=== PATIENT | female | born 1990 | race Caucasian/White ===

== ENCOUNTER → 2019-12-06 09:32 | Outpatient (BNVA) | payer OTHER, SELFPAY | PROVIDERS: Family Provider Family Medicine; PCP Family Medicine; Visit Provider Nurse Practitioner | DX: J02.0 Streptococcal pharyngitis (principal) | CPT/HCPCS: 87880 ==

== ENCOUNTER 2021-02-04 17:19 | Emergency (ER) | payer BC, SELFPAY ==
[2021-02-04 17:21] VITALS: BP 162/109; PULSE 83; RESP 15; O2SAT 98; BMI 37.8
--- NOTE | 2021-02-04 17:38 | CTR_ITS ---
PROCEDURE INFORMATION: Exam: CT Abdomen And Pelvis With Contrast Exam date and time: 02/04/2021 5:47 PM Age: 30 years old Clinical indication: Abdominal pain; Generalized; Patient HX: C/O abd pain w n/v/d x 1 week; Additional info: Pain, diarrhea x 1 week, worsening TECHNIQUE: Imaging protocol: Computed tomography of the abdomen and pelvis with contrast. Radiation optimization: All CT scans at this facility use at least one of these dose optimization techniques: automated exposure control; mA and/or kV adjustment per patient size (includes targeted exams where dose is matched to clinical indication); or iterative reconstruction. Contrast material: OMNI 300; Contrast volume: 95 ml; Contrast route: INTRAVENOUS (IV); COMPARISON: No relevant prior studies available. RADIATION DOSE METRICS: Total DLP (mGy-cm): 1667.55 FINDINGS: The lung bases are clear. The visualized bony structures are unremarkable. There is no liver mass. There is no intrahepatic biliary dilatation. No gallstones are seen within the gallbladder. The pancreas is unremarkable. The spleen is unremarkable. There is no adrenal mass. There is no hydronephrosis. There are no renal calculi. There is no perinephric stranding. There is no renal mass. The aorta is normal in caliber. The IVC is normal in caliber. Small retroperitoneal and mesenteric lymph nodes are present. Stomach is decompressed. The small bowel loops in the upper abdomen are nondistended with no bowel wall thickening. There is thickening of the wall involving the ascending and proximal transverse colon. There is also colonic wall thickening of the sigmoid colon. The findings are consistent with a colitis possibly infectious or inflammatory. Crohn's disease would be a consideration. GI consult is recommended. Within the pelvis: A normal appendix is seen within the right lower quadrant. The bladder is unremarkable. The uterus is unremarkable. There are no adnexal masses. There is no free fluid within the pelvis. There is no inguinal adenopathy. There is no pelvic adenopathy. CT/CT abdomen pelvis w con* [id number] IMPRESSION: 1. Colonic wall thickening involving the ascending and proximal transverse colon as well as the sigmoid colon with some pericolonic fat stranding. Findings are consistent with a colitis possibly infectious or inflammatory. Crohn's disease would be a consideration. GI consult is recommended. 2. No evidence for bowel obstruction. Radiation Dose CTDIVOL = (mGy): DLP = 1667.55 (mGy-cm)
--- NOTE | 2021-02-04 17:40 | W.ED.ABDPA2 ---
HPI - Abdominal Pain General: Chief Complaint: Abdominal Pain Stated Complaint: MID/LOWER ABD PAIN Time Seen by Provider: 02/04/21 17:29 History of Present Illness: HPI narrative: Patient presents with diarrhea for greater than week. Had an episode of vomiting also.'s had fever intermittently during this time. Patient has been seen in urgent care and placed on Zofran which has not helped any. Her stools have gone down for about 20-day to 10 a day. Said not able to eat much. Currently on her menses. MD elicited complaint: abdominal pain Onset (ago): day(s) Pain Consistency: constant Location: Diffuse Severity: moderate Quality: cramping and aching Radiation: none Exacerbating factors: eating Associated Symptoms: Reports GI cramping, diarrhea and nausea; Denies chills and fever(s) Review of Systems Const: Denies: fever(s), chills or body aches Eyes: Denies: change in vision or blurry vision ENMT: Denies: throat pain or nasal congestion Card: Denies: chest pain or dyspnea on exertion Resp: Denies: dyspnea, productive cough or non-productive cough GI: Reports: nausea, diarrhea and GI cramping Musc: Denies: extremity pain Skin/Breast: Denies: rash Neuro: Denies: headache(s) Psych: Denies: anxiety or depression Los/Lymph: Denies: easy bruising PFSH ED PFSH: Medical History (Updated 06/21/20 @ 09:33 by Renetta Ny APN, WHNP) Encounter for surveillance of contraceptives, unspecified No pertinent past medical history neghx: dm,htn,thyroid,dvt/PE Surgical History No history of previous surgery Family History Grandfather Diabetes paternal Stroke Hyperlipidemia Father Hyperlipidemia Grandmother PCOS (polycystic ovarian syndrome) paternal Hyperlipidemia paternal great grandmother Family/Other Breast cancer PGGM Family/Other PCOS (polycystic ovarian syndrome) paternal aunt Social History Additional social history: - Tobacco use: never Alcohol use: never Drug use: never Physical Exam Const: COMMON NORMALS: no acute distress, average body habitus and patient oriented x3 HENMT: COMMON NORMALS: normocephalic HEAD & SCALP: normal to inspection and normocephalic FACE & SINUS: normal facial exam Eye: COMMON NORMALS: conjunctivae normal GENERAL EYE: appearance normal, both eyes and all related structures CONJUNCTIVA: Yes conjunctivae normal Neck/C-Spine: COMMON NORMALS: no JVD Chest: COMMONS NORMALS: normal inspection of the chest Resp: COMMON NORMALS: normal respiratory effort and clear to auscultation bilaterally AUSCULTATION: clear to auscultation bilaterally Cardio: COMMON NORMALS: no JVD, regular rate and regular rhythm RATE: regular rate RHYTHM: regular rhythm GI: INSPECTION: Yes normal to inspection PALPATION: Yes Tenderness to palpation present (GI) (Generalized) PERCUSSION: normal to percussion Extremity: COMMON NORMALS: normal to inspection and full ROM Neuro: COMMON NORMALS: patient oriented x3 Course Vital Signs: Vital signs: Vital Signs Pulse Rate 68 02/04/21 19:36 Respiratory Rate 15 02/04/21 17:21 Blood Pressure 162/109 02/04/21 17:21 Pulse Oximetry 100 02/04/21 19:36 MDM - Abdominal Pain MDM Narrative: Medical decision making narrative: Labs and radiology results reviewed with patient.. She has a colitis patient is follow-up primary care provider in a week or 2 if no significant provement we will treat for possible bacterial more likely is a viral colitis caused by gastroenteritis is been going to her community presently. Patient can take Imodium to help with decrease amount of stools. Continue to push fluids that she has been doing. Lab Data: Labs: Lab Results 02/04/21 02/04/21 02/04/21 Range/Units 17:37 17:48 17:48 WBC 8.3 (4.0-10.0) 10^3/ uL RBC 4.90 (4.1-5.3) 10^6/u L Hgb 12.5 (11.5-15.3) g/dL Hct 38.9 (37.0-47.0) % MCV 79.4 L (81-99) fL MCH 25.5 L (28.0-34.0) pg MCHC 32.1 (30.0-36.0) g/dL RDW 12.4 (12.1-15.1) % Plt Count 320 (130-400) 10^3/c mm MPV 9.5 (7.4-10.4) fL Neut % (Auto) 49.8 % Lymph % (Auto) 35.7 % Floyd % (Auto) 9.8 % Eos % (Auto) 3.1 % Baso % (Auto) 0.5 % Neut # (Auto) 4.15 (1.8-7.7) 10^3/u L Lymph # (Auto) 3.0 (0.8-4.8) 10^3/u L Floyd # (Auto) 0.8 (0.2-0.9) 10^3/u L Eos # (Auto) 0.3 (0.0-0.8) 10^3/u L Baso # (Auto) 0.0 (0.0-0.1) 10^3/u L Nucleated RBC % (a uto) 0 % Nucleated RBCs # 0.0 /100WBC Sodium 140 (136-145) mmol/L Potassium 4.3 (3.5-5.1) mmol/L Chloride 104 (98-107) mmol/L Carbon Dioxide 28 (22-29) mmol/L Anion Gap 12.3 (5-19) BUN 8 (6-20) mg/dL Creatinine 0.6 (0.5-0.9) mg/dL GFR Calculation 117.4 (90-130) mL/min Glucose 119 H (65-115) mg/dL Calculated Osmolal ity 289 (285-295) mOsm/k g Calcium 8.5 (8.5-10.5) mg/dL Total Bilirubin 0.2 (0.15-1.2) mg/dL AST 25 (0-32) U/L ALT 29 (0-33) U/L Alkaline Phosphata se 85 (35-105) IU/L Total Protein 7.1 (6.6-8.7) g/dL Albumin 3.7 (3.5-5.2) g/dL Globulin 3.4 (1.3-4.6) g/dL Lipase 29 (13-60) U/L HCG, Qual (Negative) Urine Color Dark yellow (Yellow) Urine Appearance Hazy A (CLEAR) Urine pH 5 (5-7) Ur Specific Gravit y 1.025 (1.005-1.030) Urine Protein Trace (Negative) Urine Glucose (UA) Norm (Normal) Urine Ketones Negative (Negative) Urine Blood 3+ H (Negative) Urine Nitrate Negative (Negative) Urine Bilirubin 1+ H (Negative) Urine Urobilinogen Norm (Negative) mg/dL Ur Leukocyte Shama ase Trace H (Negative) Urine RBC Too numerous to c nt H (0-2) /hpf Urine WBC 0-4 H (0-5) /hpf Ur Squamous Epith Cells 0-4 H (0-5) /hpf Amorphous Sediment Not Reportable Urine Bacteria 1+ H (NONE) /hpf 02/04/21 Range/Units 17:48 WBC (4.0-10.0) 10^3/ uL RBC (4.1-5.3) 10^6/u L Hgb (11.5-15.3) g/dL Hct (37.0-47.0) % MCV (81-99) fL MCH (28.0-34.0) pg MCHC (30.0-36.0) g/dL RDW (12.1-15.1) % Plt Count (130-400) 10^3/c mm MPV (7.4-10.4) fL Neut % (Auto) % Lymph % (Auto) % Floyd % (Auto) % Eos % (Auto) % Baso % (Auto) % Neut # (Auto) (1.8-7.7) 10^3/u L Lymph # (Auto) (0.8-4.8) 10^3/u L Floyd # (Auto) (0.2-0.9) 10^3/u L Eos # (Auto) (0.0-0.8) 10^3/u L Baso # (Auto) (0.0-0.1) 10^3/u L Nucleated RBC % (a uto) % Nucleated RBCs # /100WBC Sodium (136-145) mmol/L Potassium (3.5-5.1) mmol/L Chloride (98-107) mmol/L Carbon Dioxide (22-29) mmol/L Anion Gap (5-19) BUN (6-20) mg/dL Creatinine (0.5-0.9) mg/dL GFR Calculation (90-130) mL/min Glucose (65-115) mg/dL Calculated Osmolal ity (285-295) mOsm/k g Calcium (8.5-10.5) mg/dL Total Bilirubin (0.15-1.2) mg/dL AST (0-32) U/L ALT (0-33) U/L Alkaline Phosphata se (35-105) IU/L Total Protein (6.6-8.7) g/dL Albumin (3.5-5.2) g/dL Globulin (1.3-4.6) g/dL Lipase (13-60) U/L HCG, Qual Negative (Negative) Urine Color (Yellow) Urine Appearance (CLEAR) Urine pH (5-7) Ur Specific Gravit y (1.005-1.030) Urine Protein (Negative) Urine Glucose (UA) (Normal) Urine Ketones (Negative) Urine Blood (Negative) Urine Nitrate (Negative) Urine Bilirubin (Negative) Urine Urobilinogen (Negative) mg/dL Ur Leukocyte Shama ase (Negative) Urine RBC (0-2) /hpf Urine WBC (0-5) /hpf Ur Squamous Epith Cells (0-5) /hpf Amorphous Sediment Urine Bacteria (NONE) /hpf Discharge Plan Discharge Patient Disposition: Home Condition: Stable Prescriptions: New Cipro 500 mg tablet 500 mg PO BID Qty: 14 RF: 0 Flagyl 500 mg tablet 500 mg PO BID 7 Days Qty: 14 RF: 0 No Action Xulane 150-35 mcg/24 hr patch weekly 1 patch transdermal Q7D Qty: 3 RF: 1 ondansetron 4 mg tablet,disintegrating 4 mg PO Q8H PRN (Reason: nausea and vomiting) Qty: 20 RF: 0 Discharge Orders: Discharge ED (Routine); Ordered 02/04/21 Ordered By: Bassem Maria Discharge Diet: As Directed Discharge Activity: Increase activity as tolerated Patient Instructions: Infectious Colitis (ED) Activity Restrictions/Additional Instructions: Follow-up with medical provider as directed. Take medications as prescribed. Return to the ER or your medical provider if condition worsens. Please read and understand discharge instructions. If any questions ask please. Advance diet slowly. Can take Imodium for diarrhea. Coding Level of Care Code ED Social Sciences Department Chair for Michaelag Fwd Exam Comprehensive
[2021-02-04 17:57] LABS: Basophils % 0.5 %; Eosinophils # 0.3 10^3/uL (0.0-0.8); Eosinophils % 3.1 %; Hematocrit 38.9 % (37.0-47.0); Hemoglobin 12.5 g/dL (11.5-15.3); Lymphocytes % 35.7 %; Mean Corpuscular HGB Conc 32.1 g/dL (30.0-36.0); Mean Corpuscular Hemoglobin 25.5 pg (28.0-34.0); Mean Corpuscular Volume 79.4 fL (81-99); Mean Platelet Volume 9.5 fL (7.4-10.4); Monocytes # 0.8 10^3/uL (0.2-0.9); Monocytes % 9.8 %; Neutrophils # 4.15 10^3/uL (1.8-7.7); Neutrophils % 49.8 %; Nucleated Red Blood Cells % 0 %; Platelet Count 320 10^3/cmm (130-400); Red Cell Distribution Width 12.4 % (12.1-15.1); White Blood Count 8.3 10^3/uL (4.0-10.0)
[2021-02-04] MEDS: sodium chloride 0.9% 1,000 ML 999 ML IV (17:59)
[2021-02-04 18:00] LABS: Specific Gravity, Urine 1.025 (1.005-1.030); Urine Appearance Hazy (CLEAR); Urine Color Dark Yellow (Yellow); pH Urine 5 (5-7)
[2021-02-04 18:01] LABS: Add Urine Culture? Yes; Add Urine Microscopic? YES; Bacteria Urine 1+ /hpf; Bilirubin Urine 1+ (Negative); Blood Urine 3+ (Negative); Glucose Urine UA Norm (Normal); Ketones Urine Negative (Negative); Leukocyte Esterase Urine Trace (Negative); Nitrate Urine Negative (Negative); Protein Urine Trace (Negative); RBC Urine TOO NUMEROUS TO CNT /hpf (0-2); Squamous Epithelial Cell Urine 0-4 /hpf (0-5); Urobilinogen Urine Norm (Negative); WBC Urine 0-4 /hpf (0-5)
[2021-02-04 18:09] LABS: HCG, Serum Qual Negative (Negative)
[2021-02-04 18:13] LABS: Alanine Aminotransferase 29 U/L (0-33); Albumin Level 3.7 g/dL (3.5-5.2); Alkaline Phosphatase 85 IU/L (35-105); Anion Gap 12.3 (5-19); Aspartate Amino Transferase 25 U/L (0-32); Blood Urea Nitrogen 8 mg/dL (6-20); Calcium 8.5 mg/dL (8.5-10.5); Carbon Dioxide 28 mmol/L (22-29); Chloride 104 mmol/L (98-107); Globulin 3.4 g/dL (1.3-4.6); Glomerular Filtration Rate 117.4 mL/min (90-130); Glucose 119 mg/dL (65-115); Lipase 29 U/L (13-60); Osmolality Calculated 289 mOsm/kg (285-295); Potassium 4.3 mmol/L (3.5-5.1); Sodium 140 mmol/L (136-145); Total Bilirubin 0.2 mg/dL (0.15-1.2); Total Protein 7.1 g/dL (6.6-8.7)
[2021-02-04] MEDS: iohexol 300 mg/mL 100 mL Btl IV (18:26)
[2021-02-04] MEDS: metroNIDAZOLE 500 MG Tablet PO (19:19)
[2021-02-04] MEDS: ciprofloxacin 500 mg Tablet PO (19:19)
[2021-02-04 19:36] VITALS: PULSE 68; O2SAT 100
== END 2021-02-04 19:36 | disposition home or self-care (01) ==
PROVIDERS: Emergency Provider Nurse Practitioner Family
DX: R10.9 Unspecified abdominal pain (principal)
CPT/HCPCS: 74177; 80053; 81001; 83690; 84703; 85025; 87086; 96360; 99283; J7030; Q9967

== ENCOUNTER → 2021-02-20 13:48 | Outpatient (BNVA) | payer BC, SELFPAY | PROVIDERS: Visit Provider Nurse Practitioner Women's Health | DX: Z01.419 Encounter for gynecological examination (general) (routine) without abnormal findings (principal) | CPT/HCPCS: 88175 ==

== ENCOUNTER → 2023-10-15 09:49 | Outpatient (BNVA) | payer OTHER, SELFPAY | PROVIDERS: Visit Provider Nurse Practitioner Women's Health | DX: Z32.00 Encounter for pregnancy test, result unknown (principal) | CPT/HCPCS: 81025 ==

== ENCOUNTER → 2023-11-03 12:08 | Outpatient (BNVA) | payer OTHER, SELFPAY | PROVIDERS: Visit Provider Obstetrics & Gynecology | DX: Z34.91 Encounter for supervision of normal pregnancy, unspecified, first trimester (principal); Z3A.10 10 weeks gestation of pregnancy | CPT/HCPCS: 76801; 80307; 81000; 85025; 86592; 86762; 86803; 86850; 86900; 87086; 87340; 87806 ==

== ENCOUNTER → 2023-11-24 08:00 | Outpatient (BNVA) | payer OTHER, SELFPAY | PROVIDERS: Visit Provider Nurse Practitioner Women's Health | DX: Z34.91 Encounter for supervision of normal pregnancy, unspecified, first trimester (principal); Z3A.00 Weeks of gestation of pregnancy not specified | CPT/HCPCS: 81000 ==

== ENCOUNTER → 2024-01-19 12:23 | Outpatient (BNVA) | payer OTHER, SELFPAY | PROVIDERS: Visit Provider Obstetrics & Gynecology | DX: Z34.92 Encounter for supervision of normal pregnancy, unspecified, second trimester (principal); Z3A.21 21 weeks gestation of pregnancy | CPT/HCPCS: 76805 ==

== ENCOUNTER → 2024-02-12 07:56 | Outpatient (BNVA) | payer OTHER, SELFPAY | PROVIDERS: Visit Provider Nurse Practitioner Women's Health | DX: Z34.01 Encounter for supervision of normal first pregnancy, first trimester (principal) | CPT/HCPCS: 82950; 84315; 85025 ==

== ENCOUNTER → 2024-02-17 08:06 | Outpatient (BNVA) | payer OTHER, SELFPAY | PROVIDERS: Visit Provider Obstetrics & Gynecology | DX: Z34.92 Encounter for supervision of normal pregnancy, unspecified, second trimester (principal); Z3A.25 25 weeks gestation of pregnancy | CPT/HCPCS: 76816 ==

== ENCOUNTER 2024-05-03 17:00 | Outpatient (CLI) | payer OTHER, SELFPAY ==
[2024-05-03 17:00] VITALS: BMI 39.4
[2024-05-03 17:13] VITALS: BP 133/73; PULSE 97
[2024-05-03 17:28] VITALS: BP 135/78; PULSE 89
[2024-05-03 17:43] VITALS: BP 127/75; PULSE 94
[2024-05-03 17:45] LABS: Charge for UA Resulting for Rev
[2024-05-03 17:50] LABS: Basophils % 0.3 %; Eosinophils # 0.1 10^3/uL (0.0-0.8); Eosinophils % 0.9 %; Hematocrit 36.1 % (36-47); Lymphocytes # 2.7 10^3/uL (0.8-4.8); Lymphocytes % 25.4 %; Mean Corpuscular HGB Conc 33.5 g/dL (30-55); Mean Corpuscular Hemoglobin 28.2 pg (27-33); Mean Corpuscular Volume 84.1 fl (85-98); Mean Platelet Volume 10.8 fL (7.4-10.4); Monocytes % 8.9 %; Neutrophils # 6.77 10^3/uL (1.8-7.7); Neutrophils % 63.5 %; Nucleated Red Blood Cells % 0 %; Platelet Count 206 10^3/cmm (157-399); Red Blood Count 4.29 10^6/uL (3.85-5.65); Red Cell Distribution Width 12.4 % (12.1-15.1); White Blood Count 10.67 10^3/uL (3.29-11.43)
[2024-05-03 17:53] LABS: Bilirubin Urine Negative (Negative); Blood Urine Negative (Negative); Glucose Urine UA Negative (Normal); Ketones Urine 1+ (Negative); Leukocyte Esterase Urine 2+ (Negative); Nitrate Urine Negative (Negative); Protein Urine Negative (Negative); Specific Gravity, Urine 1.008 (1.005-1.030); Urine Appearance Clear (CLEAR); Urine Color Yellow (Yellow)
[2024-05-03 17:58] VITALS: BP 126/72; PULSE 93
[2024-05-03 17:58] LABS: Bacteria Urine None Seen /hpf; Hyaline Casts Urine 0.81 /lpf; RBC Urine 0-2 /hpf (0-2)
[2024-05-03 18:04] LABS: Add Urine Culture? No
[2024-05-03 18:05] LABS: Alanine Aminotransferase 13 U/L (0-33); Albumin Level 3.5 g/dL (3.5-5.2); Alkaline Phosphatase 150 U/L (35-105); Aspartate Amino Transferase 23 U/L (0-32); Blood Urea Nitrogen 8 mg/dL (6-20); Calcium 9.1 mg/dL (8.5-10.5); Carbon Dioxide 20 mmol/L (22-29); Chloride 103 mmol/L (98-107); Globulin 3.3 g/dL (1.3-4.6); Glomerular Filtration Rate 141.2 mL/min (90-130); Glucose 82 mg/dL (65-115); Osmolality Calculated 281 mOsm/kg (285-295); Sodium 137 mmol/L (136-145); Total Bilirubin 0.3 mg/dL (0.15-1.2); Total Protein 6.8 g/dL (6.6-8.7); Uric Acid 3.3 mg/dL (2.4-5.7)
[2024-05-03 18:10] LABS: Urine Creatinine 43 mg/dL (28-217); Urine Protein Random 7 mg/dL
[2024-05-03 18:13] VITALS: BP 125/77; PULSE 88
[2024-05-03 18:16] LABS: UPRO/UCREAT Ratio 0.16 mg/mg CR
[2024-05-03 18:31] VITALS: BP 125/77; PULSE 88
== END 2024-05-03 18:31 | disposition home or self-care (01) ==
LOC: OPOB 17:08 → OBGYN 17:09
PROVIDERS: Visit Provider Obstetrics & Gynecology
DX: O26.899 Other specified pregnancy related conditions, unspecified trimester (principal); Z3A.00 Weeks of gestation of pregnancy not specified
CPT/HCPCS: 36415; 59025; 80053; 81000; 81003; 81015; 82570; 84156; 84550; 85025; 87081; 99211

== ENCOUNTER 2024-05-25 22:43 | Outpatient (CLI) | payer OTHER, SELFPAY ==
[2024-05-25 22:54] VITALS: BMI 39.4
[2024-05-25 22:57] VITALS: BP 122/87; PULSE 86
[2024-05-25 23:12] VITALS: BP 131/75; PULSE 88
[2024-05-25 23:27] VITALS: BP 122/62; PULSE 80
[2024-05-25 23:41] VITALS: BP 120/64; PULSE 78
[2024-05-25 23:57] VITALS: BP 117/68; PULSE 80
[2024-05-26 00:11] VITALS: BP 118/67; PULSE 81
[2024-05-26 00:27] VITALS: BP 120/64; PULSE 81
[2024-05-26 00:41] VITALS: BP 116/61; PULSE 83
[2024-05-26 00:58] VITALS: BP 118/66; PULSE 73
[2024-05-26 01:24] VITALS: BP 118/66; PULSE 73; RESP 14
== END 2024-05-26 01:24 | disposition home or self-care (01) ==
LOC: OPOB 22:51 → OBGYN 22:51
PROVIDERS: Visit Provider Obstetrics & Gynecology
DX: O26.899 Other specified pregnancy related conditions, unspecified trimester (principal); Z3A.00 Weeks of gestation of pregnancy not specified; R10.9 Unspecified abdominal pain
CPT/HCPCS: 59025; 99211

== ENCOUNTER → 2024-05-27 08:07 | Outpatient (BNVA) | payer OTHER, SELFPAY | PROVIDERS: Visit Provider Obstetrics & Gynecology | DX: Z34.80 Encounter for supervision of other normal pregnancy, unspecified trimester (principal); Z3A.00 Weeks of gestation of pregnancy not specified | CPT/HCPCS: 84315 ==

== ENCOUNTER → 2024-05-31 10:33 | Outpatient (BNVA) | payer OTHER, SELFPAY | PROVIDERS: Visit Provider Obstetrics & Gynecology | DX: Z34.80 Encounter for supervision of other normal pregnancy, unspecified trimester (principal); Z3A.39 39 weeks gestation of pregnancy | CPT/HCPCS: 76815; 76819; 84315 ==

== ENCOUNTER 2024-06-02 19:26 | Inpatient (IN) | payer OTHER, SELFPAY ==
[2024-06-02] VITALS (12 sets, daily range): BP systolic 112–136; BP diastolic 58–88; PULSE 72–101; BMI 34.9
[2024-06-02 21:00] LABS: Basophils % 0.2 %; Eosinophils # 0.1 10^3/uL (0.0-0.8); Eosinophils % 0.5 %; Hematocrit 36.7 % (36-47); Lymphocytes # 2.5 10^3/uL (0.8-4.8); Lymphocytes % 25.8 %; Mean Corpuscular HGB Conc 33.8 g/dL (30-55); Mean Corpuscular Hemoglobin 28.3 pg (27-33); Mean Corpuscular Volume 83.8 fl (85-98); Mean Platelet Volume 10.9 fL (7.4-10.4); Monocytes # 0.7 10^3/uL (0.2-0.9); Monocytes % 7.4 %; Neutrophils # 6.41 10^3/uL (1.8-7.7); Neutrophils % 65.3 %; Nucleated Red Blood Cells % 0 %; Platelet Count 221 10^3/cmm (157-399); Red Blood Count 4.38 10^6/uL (3.85-5.65); Red Cell Distribution Width 12.7 % (12.1-15.1); White Blood Count 9.82 10^3/uL (3.29-11.43)
[2024-06-02] MEDS: ampicillin 2,000 MG in sodium chloride 0.9% (plus) 50 ML 100 MG IV (21:18)
[2024-06-02] MEDS: dextrose 5%-lactated ringers 1,000 ML 125 ML IV (21:20)
[2024-06-02] MEDS: miSOPROStol 100 mcg tablet 25 MCG VAGINAL (21:40)
--- NOTE | 2024-06-02 22:54 | W.PM.OPSUD ---
Surgery/Procedure H&P Update DATE OF PROCEDURE: June 03, 2024 DATE H&P PERFORMED: 05/31/24 H&P UPDATE INFORMATION: I have reviewed H&P completed within last 30 days, I have examined patient prior to procedure and No changes to prior documentation PREOP DIAGNOSIS: Labor pain
[2024-06-03] VITALS (51 sets, daily range): BP systolic 98–174; BP diastolic 52–99; PULSE 82–164; RESP 14–16; TEMP 36.6–37; O2SAT 98–99
[2024-06-03] MEDS: ampicillin 1,000 MG in sodium chloride 0.9% (plus) 50 ML 100 MG IV ×2 (01:18→05:54)
[2024-06-03] MEDS: lactated ringers 1,000 ML 999 ML IV ×3 (03:30→06:00)
[2024-06-03] MEDS: ondansetron 2 mg/ML SDV 2 mL 4 MG IVP (04:10)
--- NOTE | 2024-06-03 05:05 | ANES.PREANE2 ---
Pre-Anesthetic Assessment Height/Weight: Height 1.65 m Weight 95.254 kg Pulse BP Pulse Ox O2 Del Method 107 H 174/75 99 Room Air 06/03/24 04:57 06/03/24 04:57 06/03/24 04:52 06/02/24 19:30 Preop Diagnosis: Labor pain SOFI Was Beta Flakita taken within 24 hours: N/A Was Clonidine taken within 24 hours: N/A Social No alcohol and No tobacco Exam alert, oriented x 3, clear to auscultation bilaterally and regular rate & rhythm History/ROS No significant history except as noted and No significant complaints Pulmonary None reported CV/HEM None reported None reported Hepatic None reported GI None reported Metabolic None reported Musc/skel None reported Neuropsych None reported Anesthetic Plan ASA status: 2 Anesthesia: Anesthesia Evaluation and Regional (specify below) (SOFI) Risk of > 500 ml blood loss (7ml/kg in children): No Medications/Allergies Home Medications Medication Instructions Recorded Confirmed Last Taken Type docosahexaenoic acid 200 mg 200 mg PO DAILY 10/15/23 05/31/24 05/25/24 History capsule ( DHA) aspirin 81 mg chewable tablet 81 mg PO DAILY 12/19/23 05/31/24 05/25/24 History docusate sodium 50 mg capsule 50 mg PO DAILY 05/25/24 05/31/24 05/25/24 History (Stool Softener) Allergies Allergy/AdvReac Type Severity Reaction Status Date / Time No Known Allergies Allergy Verified 05/31/24 11:25 Current Medications Generic Name Dose Route Start Last Admin Trade Name Freq PRN Reason Stop Dose Admin Dextrose/Lactated Ringer's 1,000 mls @ 125 mls/hr 06/02/24 20:45 06/02/24 21:20 Dextrose 5%-Lactated Ringers IV 125 mls/hr .Q8H LINDA Administration Ampicillin Sodium 1,000 mg/ 50 mls @ 100 mls/hr 06/03/24 00:45 06/03/24 01:48 Sodium Chloride IV Infused Q4H LINDA Infusion Protocol Lactated Ringer's 1,000 mls @ 999 mls/hr 06/03/24 03:38 06/03/24 04:32 Lactated Ringers IV 999 mls/hr .Q1H1M PRN Administration See label comments Ondansetron HCl 4 mg 06/02/24 20:43 06/03/24 04:10 Ondansetron 2 Mg/Ml Sdv 2 Ml IVP 4 mg Q4H PRN Administration NAUSEA AND VOMITING PFSH Anesthesia Medical History No pertinent past medical history neghx: dm,htn,thyroid,dvt/PE PCP: Smita Rey [employer]IST Surgical History No history of previous surgery Family History Grandfather Diabetes paternal Stroke Hyperlipidemia Father Hyperlipidemia Diabetes Grandmother PCOS (polycystic ovarian syndrome) paternal Hyperlipidemia paternal great grandmother Family/Other Breast cancer Paternal Great Grandmother--dx age 70's Family/Other PCOS (polycystic ovarian syndrome) paternal aunt Denies family history of Colon cancer Ovarian cancer Hypertension Uterine cancer Thyroid disease Social History Smoking and tobacco/nicotine status: never used tobacco/nicotine Female Reproductive History : 3 Data Anesthesia 06/02/24 20:20 Short CBC 06/02/24 Range/Units 20:20 WBC 9.82 (3.29-11.43) 10^3/uL Hgb 12.40 (11.27-16.99) g/dL Hct 36.7 (36-47) % MCV 83.8 L (85-98) fl Plt Count 221 (157-399) 10^3/cmm Neut % (Auto) 65.3 % Neut # (Auto) 6.41 (1.8-7.7) 10^3/uL Blood Bank 06/02/24 20:20 Blood Type O Positive Rho(D) Type Rh positive Antibody Screen Negative Cardiac Studies: No Data to Display
--- NOTE | 2024-06-03 05:09 | ANES.PROC ---
Anesthesia Procedures Procedure/Date: 06/03/24 Epidural: Time Out Performed: Yes Consents Signed: Procedure Consent Consent: requested by attending/covering physician, from patient, risks and benefits reviewed and patient agrees to proceed Lumbar Level: L2-L3 Epidural position: sitting Epidural procedure: sterile prep of area, 1% lidocaine to numb the area, 18 g needle, neg for paresthesia, test dose given, 1.5% xylocaine 1:200k epi, 0.2% Ropivacaine bolus ml (4cc and Fentanyl 100mcg), placed PCEA, no systemic response, sterile dressing applied, L.U.D. no apparent complications and 0.2% Ropiavacaine @ mls/hr (10cc/hour)
[2024-06-03] MEDS: ROPivacaine syringe 100 MG/50 ML SYRINGE 10 MG EPIDURAL (05:10)
--- NOTE | 2024-06-03 06:55 | P.PCNOB_ITS ---
Delivery Note: Date of delivery: June 03, 2024 Pre-delivery diagnoses: Term Post-delivery diagnoses: Term delivered Procedure: A spontaneous vaginal delivery Delivering Physician: Denis Morrison MD Estimated blood loss (mL): 300 Pre-Delivery Course: Ms. Farah is a 34 year old established patient with LMP of 08/23/23, JUDD 05/29/24 based on lmp, placing her at 40-4/7 weeks today. CC: Admitted for elective induction HPI: Received appropriate care. Daily vitamins since start of care. labs have all been normal, including negative for HIV. She was found to positive for Group B Strep from screening at 36 weeks. She has gained approximately 26 lbs throughout the . She denies a history of HTN during . Glucose tolerance screening for gestational diabetes was negative. Delivery: The patient was noted to be complete and pushing, so was placed in the dorsal lithotomy position, prepped and draped in the usual sterile fashion for a vaginal delivery. Pt. Noted to have epidural anesthesia. At 0640 the patient delivered a viable term male infant weighing 3880 g with scores of 7 and 9 at one and five minutes, respectively. The vertex was delivered spontaneously over intact perineum. The patient was asked to push and the head delivered spontaneously in the DENA position, over an intact perineum. A nuchal cord was checked and 1 noted, and delivered through around head as necessary. The anterior shoulder delivered easily and the posterior shoulder followed. The remainder of the infant was easily delivered and the oropharynx and nasopharynx was bulb suctioned. The infant was noted to have spontaneous cry and spontaneous movement of all four extremities. The cord was clamped x 2 and cut and noted to have 2 arteries and one vein. The infant was passed to the mother's abdomen where nursing personnel were in attendance. Cord blood sample was then obtai ariella. The placenta delivered intact spontaneously and the uterus was explored. 20 units of Pitocin was placed in the IV bag to firm the uterus. Examination of the cervix and vaginal vault did not reveal any lacerations. Examination of the perineum showed no lacerations. The patient tolerated this procedure well, and recovered in L&D with her infant in their LDR room. All sponge and needle counts were correct. Post-Delivery Status: Good and stable History History History 3 Term 2 0 Miscarriages/Ectopic 0 Living Children 2 Past Pregnancies Del. Date GA/Weeks Outcome Route Wt Inf Gender Labor Lgth Comp. Anesth esia Location 11/14/15 38 live - full term Vaginal 3.473 kg Male regional 07/20/18 39 live - full term Vaginal 3.345 kg Female Delivery Date: 11/14/15 Last Updated by: Kaitlin Fitzpatrick RN 11/14/2015--> induction of labor at 38 weeks and 4 days for mild preeclampsia and she received magnesium sulfate during her labor course and . She had a vaginal delivery with epidural of a baby boy(Castillo) who weighed 7 pounds 10-1/2 ounces. Midline second-degree episiotomy. No other complications or . Delivered by Dr. Parmjit Ricardo at [facility] in [place], [place]. Delivery Date: 07/20/18 Last Updated by: Kaitlin Fitzpatrick RN 07/20/2018---elective induction of labor at 39 weeks and 5 days. She had a vaginal delivery of a baby girl ( Courtney January) who weighed 7 lbs. 6 oz., intact perineum with right labial tear. She received antibiotics for GBS bacteriuria. 12 hour induction. Delivered by Dr. Perea at [facility] [place]. A&P Assessment and plan (1) Status post normal vaginal delivery: Plan observation. Coding Level of Care Code Acute Code for Chg Fwd Diagnoses Status post normal vaginal delivery
[2024-06-03] MEDS: oxytocin 30 UNIT/500 ML BAG 600 UNIT IV (08:17)
[2024-06-03] MEDS: docusate sodium 100 mg Capsule PO ×2 (08:49→21:42)
[2024-06-03] MEDS: PRENATAL VIT NO.130/IRON/FOLIC 1 EACH TABLET PO (08:49)
[2024-06-03] MEDS: ibuprofen 800 mg tablet PO ×3 (08:51→21:42)
[2024-06-03 20:53] LABS: Hematocrit 34.5 % (36-47); Mean Corpuscular HGB Conc 33.3 g/dL (30-55); Mean Corpuscular Hemoglobin 28.5 pg (27-33); Mean Corpuscular Volume 85.4 fl (85-98); Mean Platelet Volume 10.8 fL (7.4-10.4); Platelet Count 194 10^3/cmm (157-399); Red Blood Count 4.04 10^6/uL (3.85-5.65); Red Cell Distribution Width 12.8 % (12.1-15.1); White Blood Count 11.36 10^3/uL (3.29-11.43)
[2024-06-04 06:21] VITALS: BP 111/78; PULSE 76; RESP 16
[2024-06-04] MEDS: docusate sodium 100 mg Capsule PO (09:31)
[2024-06-04] MEDS: PRENATAL VIT NO.130/IRON/FOLIC 1 EACH TABLET PO (09:31)
[2024-06-04 11:08] VITALS: BP 119/80; PULSE 76; RESP 16; TEMP 36.6
--- NOTE | 2024-06-04 14:22 | ANE.PACU2 ---
Inpatient post-anesthesia follow up: Airway intact: Yes Vital signs: Temperature 97.9 F Pulse Rate 76 Respiratory Rate 16 Blood Pressure 119/80 Pulse Oximetry 98 Oxygen Delivery Me thod Room Air Oxygen Flow Rate Fraction of Inspir ed Oxygen Hydration adequate: Yes Nausea and vomiting: No Pain level: 1 Mental status: Baseline Epidural Start/End: Epidural Start Date: 06/03/24 Epidural Start Time: 04:15 Epidural End Date: 06/03/24 Epidural End Time: 07:10
--- NOTE | 2024-06-04 16:42 | PM.OBGYDC ---
Discharge Providers TAX TECHNICIAN Date of Admission: 06/02/24 19:26 Date of Discharge: 06/04/24 Attending Provider at Admission: Denis Morrison MD Attending Provider at Discharge: Denis Morrison MD Diagnoses at Discharge Discharge Diagnosis (1) Status post normal vaginal delivery: Status: Acute Reason for Visit Reason for Visit: IOL Hospital Course Hospital Course Mrs. Farah 34-year-old female G3, P2 with an estimated gestational age at 40 weeks 4 days admitted for elective induction. She progressed to have a spontaneous vaginal delivery without complications. She delivered a viable term male infant weighing 3880 g with scores of 7 and 9 at one and five minutes, respectively. observation was uneventful. Tolerating diet well. Ambulating without difficulty. She was counseled regarding pelvic rest for 6 weeks (no sex, no tampons, no vaginal douches). Return to the emergency room if any fever, increased bleeding or pain. Information Peripartum Data: Infant Delivery Method: Vaginal Physical Exam Narrative: GA; alert and oriented x 3 HEENT: normal Breasts: engorged Nipples - skin intact Lungs; clear to auscultation Heart: regular rhythm, no murmurs. Abd: Appropriately tender. BS+. Uterine fundus below umbilicus. No Fundal Tenderness. Perineum: normal lochia. Extremities: no edema, no cyanosis, no tenderness. History History History 3 Term 2 0 Miscarriages/Ectopic 0 Living Children 2 Past Pregnancies Del. Date GA/Weeks Outcome Route Wt Inf Gender Labor Lgth Comp. Anesthesia Location 11/14/15 38 live - full term Vaginal 3.[address] [facility] 07/20/18 39 live - full term Vaginal 3.345 kg Female Delivery Date: 11/14/15 Last Updated by: Kaitlin Fitzpatrick RN 11/14/2015--> induction of labor at 38 weeks and 4 days for mild preeclampsia and she received magnesium sulfate during her labor course and . She had a vaginal delivery with epidural of a baby boy(Castillo) who weighed 7 pounds 10-1/2 ounces. Midline second-degree episiotomy. No other complications or . Delivered by Dr. Parmjit Ricardo at [facility] in [place], [place]. Delivery Date: 07/20/18 Last Updated by: Kaitlin Fitzpatrick RN 07/20/2018---elective induction of labor at 39 weeks and 5 days. She had a vaginal delivery of a baby girl ( January) who weighed 7 lbs. 6 oz., intact perineum with right labial tear. She received antibiotics for GBS bacteriuria. 12 hour induction. Delivered by Dr. Perea at [facility] [place]. Discharge Data Studies Completed and Pending Laboratory Results WBC 11.36 10^3/uL (3.29-11.43) 06/03/24 20:29 RBC 4.04 10^6/uL (3.85-5.65) 06/03/24 20:29 Hgb 11.50 g/dL (11.27-16.99) 06/03/24 20: Hct 34.5 % (36-47) L 06/03/24 20:29 MCV 85.4 fl (85-98) 06/03/24 20: MCH 28.5 pg (27-33) 06/03/24 20: MCHC 33.3 g/dL (30-55) 06/03/24 20: RDW 12.8 % (12.1-15.1) 06/03/24 20:29 Plt Count 194 10^3/cmm (157-399) 06/03/24 20:29 MPV 10.8 fL (7.4-10.4) H 06/03/24 20:29 Neut % (Auto) 65.3 % 06/02/24 20:20 Lymph % (Auto) 25.8 % 06/02/24 20:20 [place] % (Auto) 7.4 % 06/02/24 20:20 Eos % (Auto) 0.5 % 06/02/24 20:20 Baso % (Auto) 0.2 % 06/02/24 20:20 Neut # (Auto) 6.41 10^3/uL (1.8-7.7) 06/02/24 20:20 Lymph # (Auto) 2.5 10^3/uL (0.8-4.8) 06/02/24 20:20 [place] # (Auto) 0.7 10^3/uL (0.2-0.9) 06/02/24 20:20 Eos # (Auto) 0.1 10^3/uL (0.0-0.8) 06/02/24 20:20 Baso # (Auto) 0.0 10^3/uL (0.0-0.1) 06/02/24 20:20 Nucleated RBC % (auto) 0 % 06/02/24 20:20 Nucleated RBCs # 0.0 /100WBC 06/02/24 20:20 Blood Type O Positive 06/02/24 20:20 Rho(D) Type Rh positive 06/02/24 20:20 Antibody Screen Negative 06/02/24 20:20 Vitals Last Vital Signs Temp 97.9 F 06/04/24 11:08 Pulse 76 06/04/24 11:08 Resp 16 06/04/24 11:08 BP 119/80 06/04/24 11:08 Pulse Ox 98 06/03/24 21:43 O2 Del Method Room Air 06/04/24 06:21 Results Labs OB ([facility]): Obstetrics US 02/17/24 Obstetrics US/Biophysical Profile 05/31/24 Blood Type O Positive 06/02/24 Antibody Screen Negative 06/02/24 Hct 34.5 % (36-47) L 06/03/24 Hgb 11.50 g/dL (11.27-16.99) 06/03/24 Rho(D) Type Rh positive 06/02/24 Plt Count 194 10^3/cmm (157-399) 06/03/24 Hep Bs Antigen Non-reactive (Nonreactive) 11/03/23 Hepatitis C Antibody Non-reactive (Nonreactive) 11/03/23 Rubella IgG Antibody 173.7 IU/mL (0.0-10.0) H 11/03/23 RPR Nonreactive (Nonreactive) 11/03/23 HIV 1&2 Ab & HIV 1 Ag Non-reactive (Non-Reactiv) 11/03/23 Glucose 1 Hr 50 gm 110 mg/dL (85-140) 02/12/24 Uric Acid 3.3 mg/dL (2.4-5.7) 05/03/24 HCG, Qual Positive (Negative) H 10/15/23 Urine Opiates Screen Negative ng/mL (Negative) 11/03/23 Ur Barbiturates Screen Negative ng/mL (Negative) 11/03/23 Ur Phencyclidine Scrn Negative ng/mL (Negative) 11/03/23 Ur Amphetamines Screen Negative ng/mL (Negative) 11/03/23 U Benzodiazepines Scrn Negative ng/mL (Negative) 11/03/23 Urine Cocaine Screen Negative ng/mL (Negative) 11/03/23 U Marijuana (THC) Screen Negative ng/mL (Negative) 11/03/23 Micro Urine Specimen 11/03/23 Pap Smear Interpret See note 02/20/21 Discharge Plan Discharge Patient Disposition: Home Condition: Stable Prescriptions: New acetaminophen 325 mg capsule 325 mg PO Q4H PRN (Reason: fever or pain) Qty: 60 0RF ibuprofen 800 mg tablet 800 mg PO TID PRN (Reason: pain) Qty: 60 0RF Continued aspirin 81 mg tablet,chewable 81 mg PO DAILY DHA 200 mg capsule 200 mg PO DAILY Stool Softener 50 mg Capsule 50 mg PO DAILY Discharge Orders: Discharge Order (Routine); Ordered 06/04/24 Ordered By: Denis Morrison Referrals: Denis Morrison MD [Physician] - 07/15/24 2:30 pm Discharge Diet: Usual diet Discharge Activity: Limit activity as instructed Patient Instructions: Depression (GEN), Preeclampsia and Eclampsia After Delivery (GEN), Hemorrhage (GEN), OB Food/Drug Interaction Guide, OB Care at Home, Opioid Safety, OB Home Care, OB Vaginal Deliveries - [facility], Abnormal Bleeding Activity Restrictions/Additional Instructions: 1. Please call [facility] on next working day to make your appointment in 6 weeks. 2. Please stay home until you come back to the clinic on first post-hospatilization check up. 3. Please follow instructions on your medications CAREFULLY. 4. If you have abdominal incision, do not cover it unless dressing is necessary because of drainage. OK to shower, but avoid bath. Leave steri-strips until they fall off. If they are still on one week after surgery, you may remove them. 5. If you had vaginal surgery or vaginal repair, Dr. Morrison may instruct you to take SITZ bath. 6. Yellow, blood tinged odorous vaginal discharge is usually normal after hysterectomy or vaginal surgeries. 7. No SEXUAL INTERCOURSE, tampons, or douches until you are completely released from the post-operative care. 8. Avoid constipation by eating right and maybe using some Metamucil or Milk of Magnesia. 9. All prescription refills are given during the working hours. Please do no wait till it runs out. Call the clinic at [phone] before your medication runs out. The clinic will get in touch with your doctor to prescribe medications if necessary. 10. Please remain within 40 mile radius from our hospital because emergencies do happen now and then during the post-operative period. 11. If you have stairs at home, take one step at a time slowly and minimize the number of trips. It helps to stay in one floor for the next few days. No lifting except what you can lift by one hand until you are released from the post-operative care. 12. Driving is discouraged until you are well healed. It may be 3-4 weeks before you feel strong enough to drive. You should be able to turn and look through the rear window without pain and you should be able to push the brake pedal very hard without pain before you drive. No fast rules, but SAFETY should be your primary concern. DO NOT drive if you are on sedating medications such as narcotics. 13. Call the clinic (during working hours) to make urgent appointment or go to the Emergency room, if any of the following occurs: i. Vaginal bleeding becomes heavy, more than a period. ii. Incision becomes red and sore, or drains pus. iii. Your TEMPERATURE is over 100.4F or you have chill. iv. IV site becomes red and swollen (a little ``knot?? is usually OK) v. Persistent nausea and vomiting vi. Persistent constipation or diarrhea vii. Rash or allergic reaction to medications. Discharge Attestations TAX TECHNICIAN Time Spent in Discharge Care*: greater than 30 min Coding Level of Care Code Acute Code for Chg Fwd Diagnoses Status post normal vaginal delivery
[2024-06-04 17:20] VITALS: BP 126/84; PULSE 103; RESP 16; TEMP 37.4
== END 2024-06-04 17:30 | disposition home or self-care (01) | DRG 807 ==
LOC: OPOB 19:26 → OBGYN 19:26
PROVIDERS: Admitting Provider Obstetrics & Gynecology; Visit Provider Obstetrics & Gynecology
DX: O48.0 Post-term pregnancy (principal); Z37.0 Single live birth; Z3A.40 40 weeks gestation of pregnancy; O99.824 Streptococcus B carrier state complicating childbirth; O69.81X0 Labor and delivery complicated by cord around neck, without compression, not applicable or unspecified
CPT/HCPCS: 36415; 59025; 59409; 85025; 85027; 86850; 86900; J0290; J2405; J2590; J2795; J3010; J7120; J7121